=== PATIENT | male | born 1935 | race Caucasian/White ===

== ENCOUNTER → 2017-02-18 | Outpatient (CLI) | payer OTHER, MEDICARE ==
[~2017-02-18] VITALS: Ht 188 cm; Wt 93.0 kg
[~2017-02-18] MED LIST: ALENDRONATE SOD70 MG PO; ALLOPURINOL 10100 M1 PO; APAP/CODEINE ELI5 M1 OR; ASPIRIN325 PO; AVELOX400 MG PO; BENADRYL25 MG PO; CIPROFLOXACIN500 M1 PO; ELIQUIS5 MG PO; FINASTERIDE5 MG PO; FUROSEMIDE 20 M20 MG PO; HYDROCODONE-AP1 EAC6 PO; KLOR-CON 10 ER10 MEQ PO; LASIX 20 MG TAB20 MG PO; LIPITOR 20 MG T20 M1 PO; LISINOPRIL10 MG; LISINOPRIL10 MG PO; LISINOPRIL20 MG PO; MINOCIN100 MG PO; NORVASC 5 MG TAB5 MG; OMEPRAZOLE20 MG PO; PACERONE 200 M200 M1 PO; POTASSIUM20 PO; RYTHMOL 150MG150 M1 PO; SIMVASTATIN40 MG; TAMSULOSIN HCL0.4 MG PO; XANAX 0.25 MG0.25 MG PO
--- NOTE | ~2017-02-18 | P ---
[facility] [place] [address] PROCEDURE REPORT Name: AMANDA SUBRAMANIAN Room #: REG [facility] Faiza#: [id number] Admission: 02/18/17 Attend Phys: Levy Granger Discharge: Date of : 33 Report #: [id number] THIS REPORT FOR: //name// CC: Levy Lozano DATE OF SERVICE: 02/18/2017 DATE OF SERVICE: 02/18/2017 PROCEDURE PERFORMED: Colonoscopy. HISTORY OF PRESENT ILLNESS: The patient is an 81-year-old male with a history of colon polyps, last colonoscopy 5 years ago, tubular adenomas were removed at that time. No family history of colon cancer. Denies any symptoms at this time. DESCRIPTION OF PROCEDURE: The risks and benefits of the procedure were explained to the patient, those risks including but not limited to bleeding, perforation, the risk of sedation. He understood these risks and gave informed consent. Sedation was given using propofol and ketamine per anesthesia. Next, a digital rectal exam was initially performed, which was normal. Next, using a standard Exajoulen colonoscope, the scope was placed in the patient's anus and advanced under direct vision to the cecum. The overall prep was good. The cecum and ileocecal valve were normal in appearance. Ascending, transverse and descending colon were normal. Multiple diverticula were noted in the sigmoid colon, no evidence of inflammation, otherwise normal. The rectal mucosa was normal. On retroflexion, small nonbleeding internal hemorrhoids were noted, otherwise normal colonoscopy. The scope was then withdrawn and the procedure terminated. The patient tolerated the procedure well. IMPRESSION: 1. Sigmoid diverticulosis. 2. Small internal hemorrhoids. 3. Otherwise, normal colonoscopy. RECOMMENDATIONS: Observe the patient post-procedure. [facility] [address] [place] [address] PROCEDURE REPORT Name: AMANDA SUBRAMANIAN Room #: REG MIKI Kendall#: [id number] Admission: 02/18/17 Attend Phys: Levy Granger Discharge: Date of : 33 Report #: [id number] Thank you for allowing me to participate in his care. By: [id number] Levy Gutierrez MD /nt
--- NOTE | ~2017-02-18 | S ---
[facility] [place] [address] SURGICAL PATH RPT PROCEDURE Name: AMANDA SUBRAMANIAN Room #: REG [facility] M..#: [id number] Admission: 02/18/17 Date of : 33 Discharge: Report #: [id number] Path Case #: [id number] PATHOLOGY REPORT COLLECTION DATE: 02/18/2017 RECEIVED DATE: 02/18/2017 SUBMITTING PHYS: Dr. Levy Gutierrez OTHER PHYS: Dr. Sonya Holliday SPECIMEN(S) RECEIVED: A.Distal esoph * * * * * * * * * * * * FINAL DIAGNOSIS: A. Gastroesophageal mucosa, distal esophagus, endoscopic biopsy: - Gastric cardia-type mucosa with moderate inflammation; negative for intestinal metaplasia or dysplasia. - Squamous mucosa with mild chronic inflammation. COMMENT: [place]: Dr. Kirstie Strong. (IUV; 02/20/17) PATHOLOGIST: Jennifer Olmedo M.D. REPORT ELECTRONICALLY SIGNED BY: Jennifer Olmedo M.D. DATE/TIME: 02/20/2017 12:56 * * * * * * * * * * * * GROSS PATHOLOGY: Received in formalin labeled "Amanda Subramanian, distal esophagus," are 2 segments of carreon soft tissue measuring 0.9 x 0.3 x 0.2 cm in aggregate dimensions and ranging from 0.2 to 0.7 cm in maximum dimension. The specimen is submitted entirely in cassette A1. (GULSHAN; 02/19/2017) CLINICAL HISTORY: History of Rodriguez's esophagus INITIAL CPT CODE(S): A; 21000 Professional services performed by [facility] at [facility] [address], [place] [address] [facility] [address] [place] [address] SURGICAL PATH RPT PROCEDURE Name: AMANDA SUBRAMANIAN Room #: REG MIKI Kendall#: [id number] Admission: 02/18/17 Date of : 34 Discharge: Report #: [id number] Path Case #: [id number] [facility] at [address] [place] [address], [place] [address]. [facility] [address] [place] [address] PHONE: [phone] DIRECTOR: Jethro Rivers M.D. * * * END OF REPORT * * *
--- NOTE | ~2017-02-18 | P ---
[facility] [place] [address] PROCEDURE REPORT Name: AMANDA SUBRAMANIAN Room #: REG Yue Kendall#: [id number] Admission: 02/18/17 Attend Phys: Levy Granger Discharge: Date of : 33 Report #: [id number] THIS REPORT FOR: //name// CC: Levy Aguila MD DATE OF SERVICE: 02/18/2017 PROCEDURE PERFORMED: Upper endoscopy with biopsies. HISTORY OF PRESENT ILLNESS: The patient is an 81-year-old male with a history of gastroesophageal reflux disease and Rodriguez's esophagus, last upper endoscopy in 2011. Biopsies were negative for Rodriguez's. He takes omeprazole on a daily basis. He denies any heartburn symptoms. He denies any dysphagia or odynophagia. DESCRIPTION OF PROCEDURE: The risks and benefits of the procedure were explained to the patient, those risks including but not limited to bleeding, perforation, the risk of sedation. He understood these risks and gave informed consent. Sedation was given using ketamine and propofol per anesthesia. Next, using a standard Lumidigm upper endoscope, the scope was placed in the patient's mouth and advanced under direct vision through the esophagus, stomach and into the second portion of the duodenum. The larynx was normal in appearance. The upper and mid esophagus was normal in appearance. In the distal esophagus, a single pink mucosal tongue was noted. Biopsies were obtained to rule out Rodriguez's. There was no evidence of esophagitis or stricture. Overall, the gastric mucosa was normal. The pylorus was normal and patent. The duodenal bulb, first and second portion were all normal. The scope was then withdrawn and the procedure terminated. The patient tolerated the procedure well. IMPRESSION: 1. Possible short segment Rodriguez's. 2. Otherwise, normal upper endoscopy. RECOMMENDATIONS: 1. Await biopsy results. 2. Continue daily PPI therapy. [facility] [address] [place] [address] PROCEDURE REPORT Name: MARILYNNAMANDA [facility] #: [facility] [id number] Admission: 02/18/17 Attend Phys: Levy Granger Discharge: Date of : 34 Report #: [id number] Thank you for allowing me to participate in his care. By: [id number] Levy Gutierrez MD /michelle
== END ==
LOC: GI 06:49
DX: K57.30 Diverticulosis of large intestine without perforation or abscess without bleeding (principal); K64.8 Other hemorrhoids; K21.9 Gastro-esophageal reflux disease without esophagitis; K22.70 Barrett's esophagus without dysplasia; I10 Essential (primary) hypertension; C85.80 Other specified types of non-Hodgkin lymphoma, unspecified site; E78.5 Hyperlipidemia, unspecified; F10.21 Alcohol dependence, in remission; Z95.0 Presence of cardiac pacemaker; Z87.891 Personal history of nicotine dependence
CPT/HCPCS: 62110; 62900

== ENCOUNTER → 2017-04-20 | Outpatient (CLI) | payer OTHER, MEDICARE ==
[2017-04-20 12:21] LABS: ALBUMIN 4.1 g/dL (3.4-5.0); DIRECT BILIRUBIN 0.1 mg/dL (<0.1-0.3); TOTAL BILIRUBIN 0.4 mg/dL (<0.1-1.0); TOTAL PROTEIN 7.7 g/dL (6.4-8.2)
== END ==
LOC: LABMALL 11:29
PROVIDERS: Internal Medicine Cardiovascular Disease
DX: R91.8 Other nonspecific abnormal finding of lung field (principal); I48.91 Unspecified atrial fibrillation; Z95.0 Presence of cardiac pacemaker; Z79.899 Other long term (current) drug therapy

== ENCOUNTER → 2017-10-29 | Outpatient (CLI) | payer OTHER, MEDICARE ==
[~2017-10-29] VITALS: Ht 185.4 cm; Wt 93.0 kg
[~2017-10-29] MED LIST changes: +ASPIR 8181 MG PO; +SPIRIVA INH; +VENTOLIN HFA 1818 GM INH
--- NOTE | ~2017-10-29 | CATHLAB ---
[facility] [address] [place] [address] INVASIVE PROCEDURE REPORT Name: AMANDA SUBRAMANIAN Room #: REG Faiza#: [id number] Admission: 10/29/17 Attend Phys: Denis Monte MD Discharge: Date of : 34 Date of Service: 10/29/17 1221 Report #: [id number] THIS REPORT FOR: //name// APPROVED REPORT Patient Details Patient Status: Out-Patient Room #: The patient is a 82 year-old male Event Personnel Denis Monte [facility] Information Specialist, Maddie Acuna, Hali Luo, Porfirio Rich ssrs developer Performed Art Access - R femoral artery* Left Heart Cath w/or w/o Coronaries [id number] [facility] [address] Initial Mod Sed Same Phys/QHP Gr5y [id number] Indication Dyspnea, Positive stress test Risk Factors Hypercholesterolemia, Hypertension Procedure Narrative The patient was brought electively to the Cardiac Catheterization Laboratory and was prepped and draped in a sterile manner. The Right Wrist^ was infiltrated with subcutaneous anesthesia. A TRANSRADIAL SLENDER 6F GLIDESHEATH KIT #[id number] sheath was inserted into the Right Radial Artery^. Coronary angiography was performed using coronary diagnostic catheters. The right coronary system was accessed and visualized with a JR 4 catheter. The left coronary system was accessed and visualized with a JL 3.5 catheter. The left ventricle was accessed and visualized with a Pigtail catheter. Left ventricular/Aortic Valve gradient assessed via catheter pullback. Left ventriculogram was performed in VALLES projection. Hemostasis was obtained with manual pressure following sheath removal without any complications. The patient tolerated the procedure well and there were no complications associated with the procedure. There was no hematoma. Intraoperative Conscious Sedation Sedation start time: 10:52 Case end Time: 11:11 Fentanyl 25.0 mcg Versed 1.5 mg [facility] [place] [address] INVASIVE PROCEDURE REPORT Name: MARILYNNAMANDA Room #: REG [facility].#: [id number] Admission: 10/29/17 Attend Phys: Denis Monte MD Discharge: Date of : 33 Date of Service: 10/29/17 1221 Report #: [id number] Fluoro Time: 3.00 minutes Dose: DAP 4504.88 cGycm2 527 mGy Contrast Type and Amount: Visipaque 100 ml Coronary Angiography The patient's coronary anatomy is right dominant. Diagnostic Cath Left Main patent vessel, with no flow-limiting lesions. LAD Moderate size caliber vessel, traveling down the anterior wall and wrapping around the apex. There may be some minimal luminal irregularities in the proximal segment. Diagonal 1 Moderate size caliber vessel, with no flow-limiting lesions. Diagonal 2 Patent vessel, with no flow-limiting lesions. Circumflex Patent vessel, with no flow-limiting lesions. OM1 Patent vessel, with no flow-limiting lesions. Right Coronary Dominant vessel with mild plaquing in the mid segment, 20%. R PDA Patent vessel, with no flow-limiting lesions. RPLV Patent vessel, with no flow-limiting lesions. Left Ventriculography The left ventricle is normal in size with normal contractility. The left ventricular ejection fraction is estimated to be >55%. Hemodynamics The aortic pressure is 136/71 mmHg with a mean of 97 mmHg. The left ventricular pressure is 134/6 mmHg with a mean of mmHg. The left ventricular end diastolic pressure is 17 mmHg. Conclusion 1. 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 2. Right dominant system. 3. Normal LV systolic function. 4. Recommend aggressive risk factor management. <ELECTRONICALLY SIGNED> By: Denis Monte MD 10/29/17 1221 122 122 Denis Monte MD /INF
--- NOTE | ~2017-10-29 | EKG ---
[address] [place] [address] ELECTROCARDIOGRAM REPORT Name: AMANDA SUBRAMANIAN Room #: REG MIKI Kendall#: [id number] Admission: 10/29/17 Attend Phys: Denis Monte MD Discharge: Date of : 34 Report #: [id number] THIS REPORT FOR: //name// [facility] Test Date: 2017-10-29 Test Time: 08:48:13 Pat Name: AMANDA SUBRAMANIAN Department: Room: Gender: Wearing Apparel Assembler: Vladimir BUSH : 1935 Requested By: Denis Monte Order Number: [id number] MD: Venu Vigil Measurements Intervals [place] Rate: 62 P: -16 AK: 242 QRS: -54 QRSD: 101 T: 15 QT: 449 QTc: 456 Interpretive Statements Sinus rhythm Atrial premature complex Prolonged AK interval Left anterior fascicular block Electronically Signed On 10-29-2017 9:56:14 LINING BRUSHER by Venu Vigil [email or web address] <ELECTRONICALLY SIGNED> By: Venu Vigil MD 10/29/17 0956 [id number] 0848 MD SHAYAN Garcia
[2017-10-29 08:53] VITALS: BP 143/85
[2017-10-29 09:05] LABS: HEMATOCRIT 35.2 % (42.0-52.0); MCH 32.3 pg (26.0-34.0); MCHC 34.1 g/dL (28.0-37.0); MCV 94.8 fL (80.0-100.0); RBC 3.71 mil/uL (4.50-6.00); RDW 14.7 % (10.5-14.5); WBC 3.8 thou/uL (4.0-11.0)
[2017-10-29 09:12] LABS: CREATININE 1.2 mg/dL (0.7-1.3); POTASSIUM 3.8 mmol/L (3.5-5.1)
== END | disposition home or self-care (01) ==
LOC: CATH 07:09
PROVIDERS: Internal Medicine Cardiovascular Disease
DX: I25.10 Atherosclerotic heart disease of native coronary artery without angina pectoris (principal); E78.00 Pure hypercholesterolemia, unspecified; I10 Essential (primary) hypertension; Z98.890 Other specified postprocedural states; N40.0 Benign prostatic hyperplasia without lower urinary tract symptoms; I48.0 Paroxysmal atrial fibrillation; Z87.891 Personal history of nicotine dependence

== ENCOUNTER → 2018-02-18 | Outpatient (CLI) | payer OTHER, MEDICARE | LOC: RAD 07:55 | DX: R06.00 Dyspnea, unspecified (principal); Z88.0 Allergy status to penicillin ==